=== PATIENT | female | born 1990 | race Hispanic/Latino ===

== ENCOUNTER 2019-10-24 09:30 | Emergency (ER) | payer OTHER ==
[2019-10-24] MEDS ORDERED: ACETAMINOPHEN 500 MG TAB ONE (10:17)
[2019-10-24] MEDS ORDERED: NA CHLORIDE 0.9% 1,000 ML ONE (10:18)
[2019-10-24] MEDS ORDERED: ENALAPRILAT 1.25 MG/ML VIAL IV ONE (10:18)
--- NOTE | 2019-10-24 10:45 | RAD REPORT ---
EXAM DESCRIPTION: RAD - Chest Single View - 10/24/2019 10:38 am CLINICAL HISTORY: Cough;Fever Chest pain. COMPARISON: CHEST SINGLE VIEW dated 12/08/2008 FINDINGS: Portable technique limits examination quality. The lungs are grossly clear. The heart is normal in size. No displaced fractures. IMPRESSION: No acute intrathoracic process suspected.
[2019-10-24 10:55] LABS: BUN Blood Urea Nitrogen 12 mg/dL (7-18); Bicarbonate 26 mmol/L (21-32); Glucose Level 102 mg/dL (74-106); Potassium 3.3 mmol/L (3.5-5.1); Sodium Level 136 mmol/L (136-145)
[2019-10-24 11:01] LABS: Hematocrit 42.2 % (36.0-45.0); RBC Red Blood Cell Count 4.95 M/uL (3.86-4.86)
[2019-10-24 11:02] LABS: Absolute Lymphocytes (CBC) 1.1 K/uL (0.7-4.9); Basophils % 0.2 % (0-1.3); MPV 8.2 fL (7.6-11.3)
[2019-10-24 11:36] LABS: Urine Blood 1+ (NEG); Urine Glucose NEGATIVE (NEG); Urine Protein 2+ (NEG); Urine pH 5.5 (5.0-7.0)
--- NOTE | 2019-10-24 11:54 | ER ---
Nurse's Notes [facility] Name: Julisa Camp Age: 28 yrs Sex: Female : 1990 Arrival Date: 10/24/2019 Time: 09:31 Bed 15 Private MD: Diagnosis: Acute upper respiratory infection, unspecified;Acute bronchitis Presentation: 10/23 09:45 Chief complaint: Patient states: cough and general body aches that began yesterday. ss Fever since last night, but now this morning patient is having chest pain that radiates towards her back. Coronavirus screen: The patient has NOT traveled to a country currently being monitored by the [facility] within the last 14 days. Proceed with normal triage procedures. Ebola Screen: Patient denies exposure to infectious person. Patient denies travel to an Ebola-affected area in the 21 days before illness onset. Initial Sepsis Screen: Does the patient meet any 2 criteria? HR > 90 bpm. Does the patient have a suspected source of infection? No. Patient's initial sepsis screen is negative. Risk Assessment: Do you want to hurt yourself or someone else? Patient reports no desire to harm self or others. 09:45 Method Of Arrival: Ambulatory ss 09:45 Acuity: GEN 3 ss 11:05 Onset of symptoms is unknown. Triage Assessment: 11:05 General: Appears in no apparent distress. Behavior is calm, cooperative, appropriate wh for age. Respiratory: Reports cough that is Onset: The symptoms/episode began/occurred gradually, the patient reports symptoms have resolved. 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 tw2 Historical: - Allergies: 09:47 No Known Allergies; ss - Home Meds: 09:47 None [Active]; ss - PMHx: 09:47 polycystic kidney disease; Hypertension; ss - PSHx: 09:47 ; Cholecystectomy; ss - Immunization history:: Adult Immunizations up to date. - Social history:: Smoking status: Patient denies any tobacco usage or history of. Screenin:18 Abuse screen: Denies threats or abuse. Nutritional screening: No deficits noted. tw2 Tuberculosis screening: No symptoms or risk factors identified. Fall Risk None identified. Assessment: 10:18 Cardiovascular: Rhythm is sinus tachycardia. tw2 10:18 General: Appears in no apparent distress. Behavior is calm, cooperative, appropriate tw2 for age. Neuro: Level of Consciousness is awake, alert, obeys commands, Oriented to person, place, time, situation. Cardiovascular: Heart tones S1 S2 Patient's skin is warm and dry. Respiratory: Airway is patent Respiratory effort is even, unlabored, Respiratory pattern is regular, symmetrical, Breath sounds are clear bilaterally. Respiratory: Reports cough that is. GI: No signs and/or symptoms were reported involving the gastrointestinal system. : No signs and/or symptoms were reported regarding the genitourinary system. EENT: Reports nasal congestion nasal discharge. Derm: No signs and/or symptoms reported regarding the dermatologic system. Musculoskeletal: Range of motion: intact in all extremities. 11:05 Reassessment: Patient appears in no apparent distress at this time. Patient and/or family updated on plan of care and expected duration. Pain level reassessed. Patient is alert, oriented x 3, equal unlabored respirations, skin warm/dry/pink. Pain: Denies pain. Respiratory: Airway is patent Respiratory effort is even, unlabored, Respiratory pattern is regular, symmetrical, Breath sounds are clear bilaterally. 12:15 Reassessment: Patient appears in no apparent distress at this time. No changes from previously documented assessment. Patient and/or family updated on plan of care and expected duration. Pain level reassessed. Patient is alert, oriented x 3, equal unlabored respirations, skin warm/dry/pink. Patient states feeling better. Vital Signs: 09:45 BP 183 / 115; Pulse 127; Resp 18; Temp 99.9(TE); Pulse Ox 98% on R/A; Weight 72.57 kg; ss Height 5 ft. 1 in. (154.94 cm); Pain 10/10; 10:06 BP 172 / 122 LA (auto/reg); Pulse 121; Resp 17; Pulse Ox 100% on R/A; jp3 10:17 BP 166 / 104; Pulse 122; Resp 17; Pulse Ox 100% on R/A; tw2 11:10 BP 141 / 92; Pulse 106; Resp 17; Pulse Ox 100% on R/A; tw2 11:23 BP 126 / 90; Pulse 105; Resp 20; Pulse Ox 99% on R/A; tw2 12:18 BP 128 / 92; Pulse 98; Resp 18; Pulse Ox 100% on R/A; wh 09:45 Body Mass Index 30.23 (72.57 kg, 154.94 cm) ED Course: 09:31 Patient arrived in ED. rg4 09:47 Triage completed. ss 09:47 Arm band placed on right wrist. ss 09:48 Neil Valerio PA is PHCP. jr8 09:48 Umair Josue MD is Attending Physician. jr8 09:49 Michelle Garcia RN is Primary Nurse. tw2 10:04 Bed in low position. Call light in reach. Side rails up X 1. Verbal reassurance given. jp3 court recording monitor on. Pulse ox on. NIBP on. 10:04 Patient maintains SpO2 saturation greater than 95% on room air. jp3 10:20 Initial lab(s) drawn, by me, sent to lab. Flu and/or RSV swab sent to lab. Strep swab jp3 sent to lab. Inserted saline lock: 20 gauge in right antecubital area, using aseptic technique. Blood collected. 10:32 X-ray(s) taken. tw2 10:52 XRAY Chest (1 view) In Process Unspecified. EDMS 11:20 Urine collected: clean catch specimen, clear, carmelina colored. jp3 11:47 Throat Culture Sent. jp3 12:11 Removal of peripheral IV. Catheter intact, dressing applied. jp3 12:16 No provider procedures requiring assistance completed. IV discontinued, intact, wh bleeding controlled, No redness/swelling at site. Administered Medications: 10:17 Drug: Tylenol 1000 mg Route: PO; 11:29 Follow up: Response: No adverse reaction; Pain is decreased tw2 12:18 Follow up: Response: No adverse reaction; Temperature is decreased 10:17 Drug: Enalaprilat 1.25 mg Route: IV; Rate: calculated rate; Site: right antecubital; 11:28 Follow up: Response: No adverse reaction; Blood pressure is lowered tw2 12:18 Follow up: Response: No adverse reaction; Blood pressure is lowered; IV Status: Completed infusion 10:19 Drug: NS 0.9% 1000 ml Route: IV; Rate: 1000 ml; Site: right antecubital; 12:18 Follow up: Response: No adverse reaction; IV Status: Completed infusion Point of Care Testing: Urine : 11:20 hCG Reading: Negative; Control Reading: Positive; jp3 Outcome: 11:53 Discharge ordered by MD. mera 12:17 Discharged to home ambulatory. 12:17 Condition: stable 12:17 Discharge instructions given to patient, Instructed on discharge instructions, follow up and referral plans. medication usage, POC Demonstrated understanding of instructions, follow-up care, medications, POC Prescriptions given X 2. 12:19 Patient left the ED. Signatures: Dispatcher [employer] EDPR Sarah Veloz RN RN Neil Valerio PA PA jr8 Michelle Garcia RN RN tw2 Mary Lou Scott4 Conchita Blair Viktor Howe jp3 Corrections: (The following items were deleted from the chart) 10:32 08:00 NS 0.9% 1000 ml IV at 1000 ml in right antecubital [facility] 10:33 10:10 Enalaprilat 1.25 mg IV at calculated rate in right antecubital [facility] 10:33 10:08 NS 0.9% 1000 ml IV at 1000 ml in right antecubital [facility]
--- NOTE | 2019-10-24 11:54 | EDPHYS ---
Physician Documentation [facility] Name: Julisa Camp Age: 28 yrs Sex: Female : 1990 Arrival Date: 10/24/2019 Time: 09:31 Bed 15 Private MD: ED Physician Umair Josue HPI: 10/23 11:44 This 28 yrs old Female presents to ER via Ambulatory with complaints of jr8 Breathing Difficulty, Cough. 11:44 The patient has shortness of breath at rest. Onset: The symptoms/episode began/occurred jr8 gradually, 2 day(s) ago. Duration: The symptoms are continuous. The patient's shortness of breath has no apparent modifying factors. Associated signs and symptoms: Pertinent positives: chest pain, non-productive cough, fever. Severity of symptoms: At their worst the symptoms were mild in the emergency department the symptoms are unchanged. The patient has not experienced similar symptoms in the past. The patient has not recently seen a physician. 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 tw2 Historical: - Allergies: 09:47 No Known Allergies; ss - Home Meds: 09:47 None [Active]; ss - PMHx: 09:47 polycystic kidney disease; Hypertension; ss - PSHx: 09:47 ; Cholecystectomy; ss - Immunization history:: Adult Immunizations up to date. - Social history:: Smoking status: Patient denies any tobacco usage or history of. ROS: 11:44 Eyes: Negative for injury, pain, redness, and discharge, Neck: Negative for injury, jr8 pain, and swelling, Abdomen/GI: Negative for abdominal pain, nausea, vomiting, diarrhea, and constipation, Back: Negative for injury and pain, MS/Extremity: Negative for injury and deformity, Skin: Negative for injury, rash, and discoloration. 11:44 Constitutional: Positive for body aches, chills, fever. 11:44 ENT: Positive for rhinorrhea. 11:44 Cardiovascular: Positive for chest pain. 11:44 Respiratory: Positive for cough, Negative for dyspnea on exertion, shortness of breath, sputum production, wheezing. 11:44 Neuro: Positive for headache. Exam: 11:44 Eyes: Pupils equal round and reactive to light, extra-ocular motions intact. Lids and jr8 lashes normal. Conjunctiva and sclera are non-icteric and not injected. Cornea within normal limits. Periorbital areas with no swelling, redness, or edema. ENT: Nares patent. No nasal discharge, no septal abnormalities noted. Tympanic membranes are normal and external auditory canals are clear. Oropharynx with no redness, swelling, or masses, exudates, or evidence of obstruction, uvula midline. Mucous membranes moist. Neck: Trachea midline, no thyromegaly or masses palpated, and no cervical lymphadenopathy. Supple, full range of motion without nuchal rigidity, or vertebral point tenderness. No Meningismus. Cardiovascular: Regular rate and rhythm with a normal S1 and S2. No gallops, murmurs, or rubs. Normal PMI, no JVD. No pulse deficits. Respiratory: Lungs have equal breath sounds bilaterally, clear to auscultation and percussion. No rales, rhonchi or wheezes noted. No increased work of breathing, no retractions or nasal flaring. Abdomen/GI: Soft, non-tender, with normal bowel sounds. No distension or tympany. No guarding or rebound. No evidence of tenderness throughout. Back: No spinal tenderness. No costovertebral tenderness. Full range of motion. Skin: Warm, dry with normal turgor. Normal color with no rashes, no lesions, and no evidence of cellulitis. MS/ Extremity: Pulses equal, no cyanosis. Neurovascular intact. Full, normal range of motion. Neuro: Awake and alert, GCS 15, oriented to person, place, time, and situation. Cranial nerves II-XII grossly intact. Motor strength 5/5 in all extremities. Sensory grossly intact. Cerebellar exam normal. Normal gait. Vital Signs: 09:45 BP 183 / 115; Pulse 127; Resp 18; Temp 99.9(TE); Pulse Ox 98% on R/A; Weight 72.57 kg; ss Height 5 ft. 1 in. (154.94 cm); Pain 10/10; 10:06 BP 172 / 122 LA (auto/reg); Pulse 121; Resp 17; Pulse Ox 100% on R/A; jp3 10:17 BP 166 / 104; Pulse 122; Resp 17; Pulse Ox 100% on R/A; tw2 11:10 BP 141 / 92; Pulse 106; Resp 17; Pulse Ox 100% on R/A; tw2 11:23 BP 126 / 90; Pulse 105; Resp 20; Pulse Ox 99% on R/A; tw2 12:18 BP 128 / 92; Pulse 98; Resp 18; Pulse Ox 100% on R/A; wh 09:45 Body Mass Index 30.23 (72.57 kg, 154.94 cm) ss MDM: 09:50 Patient medically screened. jr8 11:46 Differential diagnosis: Bronchitis pneumonia, Sepsis URI. Data reviewed: vital signs, [facility] nurses notes, lab test result(s), radiologic studies, plain films. Data interpreted: Pulse oximetry: on room air is 99 %. Interpretation: normal. Counseling: I had a detailed discussion with the patient and/or guardian regarding: the historical points, exam findings, and any diagnostic results supporting the discharge/admit diagnosis, lab results, radiology results, the need for outpatient follow up, a family practitioner, to return to the emergency department if symptoms worsen or persist or if there are any questions or concerns that arise at home. Response to treatment: the patient's symptoms have markedly improved after treatment, patient is well hydrated. 10/23 10:07 Order name: CBC with Diff; Complete Time: 11:17 10/23 10:07 Order name: Basic Metabolic Panel; Complete Time: 11:06 8 10/23 10:07 Order name: Influenza Screen (a \T\ B); Complete Time: 11:06 8 10/23 10:07 Order name: Strep [facility] 10/23 11:01 Order name: Throat Culture [facility] 10/23 11:27 Order name: Urine Dipstick--Ancillary (enter results); Complete Time: 11:43 bd 10/23 10:07 Order name: Urine Test (obtain specimen); Complete Time: 11:38 8 10/23 10:07 Order name: Urine Dipstick-Ancillary (obtain specimen); Complete Time: 11:38 [facility] 10/23 10:07 Order name: XRAY Chest (1 view); Complete Time: 11:17 8 10/23 10:16 Order name: IV Start; Complete Time: 10:21 tw2 10/23 11:27 Order name: Urine --Ancillary (enter results); Complete Time: 11:43 bd Administered Medications: 10:17 Drug: Tylenol 1000 mg Route: PO; 11:29 Follow up: Response: No adverse reaction; Pain is decreased tw2 12:18 Follow up: Response: No adverse reaction; Temperature is decreased 10:17 Drug: Enalaprilat 1.25 mg Route: IV; Rate: calculated rate; Site: right antecubital; 11:28 Follow up: Response: No adverse reaction; Blood pressure is lowered tw2 12:18 Follow up: Response: No adverse reaction; Blood pressure is lowered; IV Status: Completed infusion 10:19 Drug: NS 0.9% 1000 ml Route: IV; Rate: 1000 ml; Site: right antecubital; 12:18 Follow up: Response: No adverse reaction; IV Status: Completed infusion Point of Care Testing: Urine : 11:20 hCG Reading: Negative; Control Reading: Positive; jp3 Disposition: 13:02 Co-signature as Attending Physician, Umair Josue MD. Chart complete. rn Disposition: 10/24/19 11:53 Discharged to Home. Impression: Acute upper respiratory infection, unspecified, Acute bronchitis. - Condition is Stable. - Discharge Instructions: Acute Bronchitis, Adult, Upper Respiratory Infection, Adult. - Prescriptions for Prednisone 20 mg Oral Tablet - take 1 tablet by ORAL route once daily for 5 days; 5 tablet. - Work release form, Medication Reconciliation Form, Thank You Letter, Antibiotic Education, Prescription Opioid Use form. - Follow up: Private Physician; When: 2 - 3 days; Reason: Recheck today's complaints, Continuance of care, Re-evaluation by your physician. - Problem is new. - Symptoms have improved. Signatures: Dispatcher [employer] EDMS Umair Josue MD MD rn Smirch, Shelby, RN RN ss Roszak, Josh, PA PA jr8 Michelle Garcia RN RN 2 Conchita Blair Corrections: (The following items were deleted from the chart) 12:19 11:53 10/24/2019 11:53 Discharged to Home. Impression: Acute upper respiratory wh infection, unspecified; Acute bronchitis. Condition is Stable. Forms are Medication Reconciliation Form, Thank You Letter, Antibiotic Education, Prescription Opioid Use. Follow up: Private Physician; When: 2 - 3 days; Reason: Recheck today's complaints, Continuance of care, Re-evaluation by your physician. Problem is new. Symptoms have improved. samaria
[2019-10-24 12:25] VITALS: TEMP 99.9
[2019-10-24 12:31] VITALS: BP 128/92; O2SAT 100
== END 2019-10-24 12:19 | disposition home or self-care (01) ==
LOC: ER 09:30
DX: J06.9 Acute upper respiratory infection, unspecified (principal); J20.9 Acute bronchitis, unspecified
CPT/HCPCS: 96365; 87070; 85025; 80048; 36415; 81025; 87081; 81003; 87804 ×2; 71045; 99285; 96366; J7030

== ENCOUNTER 2020-11-11 21:25 | Emergency (ER) | payer OTHER ==
[2020-11-11] MEDS ORDERED: NA CHLORIDE 0.9% 1,000 ML ONE (23:05)
[2020-11-11 23:17] LABS: Absolute Lymphocytes (CBC) 0.8 K/uL (0.7-4.9); Basophils % 0.1 % (0-1.3); Lymphocytes % 11.1 % (15.3-44.8); MPV 7.7 fL (7.6-11.3); RBC Red Blood Cell Count 4.81 M/uL (3.86-4.86)
[2020-11-11 23:21] LABS: Protime INR 1.12
[2020-11-11 23:33] LABS: ALT/SGPT 63 U/L (12-78); AST/SGOT 29 U/L (15-37); Albumin 3.5 g/dL (3.4-5.0); Alkaline Phosphatase 61 U/L (45-117); BUN Blood Urea Nitrogen 13 mg/dL (7-18); Bicarbonate 24 mmol/L (21-32); Bilirubin Direct 0.2 mg/dL (0-0.2); Bilirubin Total 0.7 mg/dL (0.2-1.0); Ferritin 217.9 ng/mL (8-388); Glucose Level 136 mg/dL (74-106); Lipase 241 U/L (73-393); Potassium 3.1 mmol/L (3.5-5.1); Protein, Total 8.4 g/dL (6.4-8.2); Sodium Level 135 mmol/L (136-145); Troponin (Emerg Dept Use Only) < 0.02 ng/mL (0.0-0.045)
--- NOTE | 2020-11-12 00:16 | EDPHYS ---
Physician Documentation [facility] Name: Julisa Camp Age: 29 yrs Sex: Female : 1990 Arrival Date: 11/11/2020 Time: 22:00 Bed 24 Private MD: ED Physician Philippe Thomas HPI: 11/11 22:57 This 29 yrs old Female presents to ER via Ambulatory with complaints of kb Breathing Difficulty. 22:57 The patient has shortness of breath at rest. Onset: The symptoms/episode began/occurred kb 1 week(s) ago. Duration: The symptoms are continuous. The patient's shortness of breath is aggravated by exertion. Associated signs and symptoms: Pertinent positives: non-productive cough, fever. Severity of symptoms: At their worst the symptoms were moderate in the emergency department the symptoms are unchanged. The patient has not experienced similar symptoms in the past. The patient has been recently seen by a physician:. Pt reports she tested positive for COVID on 11/04/20 at a clinic. States she was given zithromax, decadron, symbicort and albuterol, but she is still having shortness of breath, MEDRANO, cough, fever. . Historical: - Allergies: 22:15 No Known Allergies; sg - PMHx: 22:15 Hypertension; POLYCYSTIC KIDNEY DISEASE; sg - PSHx: 22:15 ; Cholecystectomy; sg - Immunization history:: Adult Immunizations not up to date. - Social history:: Smoking status: Patient denies any tobacco usage or history of. ROS: 22:56 MS/Extremity: Negative for injury and deformity, Skin: Negative for injury, rash, and kb discoloration, Neuro: Negative for headache, weakness, numbness, tingling, and seizure. 22:56 Constitutional: Positive for chills, fever, malaise. 22:56 Cardiovascular: Positive for palpitations. 22:56 Respiratory: Positive for cough, dyspnea on exertion, shortness of breath. 22:56 Abdomen/GI: Positive for diarrhea. Exam: 22:56 Constitutional: This is a well developed, well nourished patient who is awake, alert, kb and in no acute distress. Cardiovascular: Regular rate and rhythm with a normal S1 and S2. No gallops, murmurs, or rubs. No pulse deficits. Skin: Warm, dry with normal turgor. Normal color. MS/ Extremity: Pulses equal, no cyanosis. Neurovascular intact. Full, normal range of motion. Neuro: Awake and alert, GCS 15, oriented to person, place, time, and situation. Moves all extremities. Normal gait. 22:56 Respiratory: the patient does not display signs of respiratory distress, Respirations: normal, Breath sounds: are clear throughout. 11/12 00:13 ECG was reviewed by the Attending Physician. Vital Signs: 11/11 22:13 BP 130 / 88; Pulse 120; Resp 18; Temp 99.3(O); Pulse Ox 99% on R/A; sg 23:00 BP 102 / 80; Pulse 109; Resp 19; Pulse Ox 94% on R/A; jb4 MDM: 22:14 Patient medically screened. 22:56 Data reviewed: vital signs, nurses notes. Data interpreted: Pulse oximetry: on room air kb is 99 %. Interpretation: normal. 11/12 00:15 Counseling: I had a detailed discussion with the patient and/or guardian regarding: the kb historical points, exam findings, and any diagnostic results supporting the discharge/admit diagnosis, lab results, radiology results, the need for outpatient follow up, a family practitioner, to return to the emergency department if symptoms worsen or persist or if there are any questions or concerns that arise at home. 11/11 22:36 Order name: BMP 11/11 22:36 Order name: C-Reactive Protein 11/11 22:36 Order name: CBC with Diff 11/11 22:36 Order name: D-Dimer 11/11 22:36 Order name: Ferritin 11/11 22:36 Order name: Lactate 11/11 22:36 Order name: LFT's 11/11 22:36 Order name: Lipase; Complete Time: 23:35 kb 11/11 22:36 Order name: Procalcitonin; Complete Time: 00:13 kb 11/11 22:36 Order name: PT-INR; Complete Time: 23:29 kb 11/11 22:36 Order name: Ptt, Activated; Complete Time: 23:29 kb 11/11 22:36 Order name: Troponin (emerg Dept Use Only); Complete Time: 23:35 kb 11/11 22:36 Order name: Basic Metabolic Panel; Complete Time: 23:35 EDMS 11/11 22:36 Order name: C-Reactive Protein; Complete Time: 23:35 EDMS 11/11 22:36 Order name: EKG; Complete Time: 22:36 kb 11/11 22:36 Order name: Cardiac monitoring; Complete Time: 22:41 kb 11/11 22:36 Order name: Droplet/Contact Precautions; Complete Time: 22:41 kb 11/11 22:36 Order name: EKG - Nurse/Tech; Complete Time: 23:07 kb 11/11 22:36 Order name: IV Start; Complete Time: 22:52 kb 11/11 22:36 Order name: Labs collected and sent; Complete Time: 22:52 kb 11/11 22:36 Order name: O2 Per Protocol; Complete Time: 22:41 kb 11/11 22:36 Order name: O2 Sat Monitoring; Complete Time: 22:41 kb 11/11 22:36 Order name: CT Chest For PE Angio kb 11/11 22:36 Order name: CBC with Automated Diff; Complete Time: 23:18 EDMS 11/11 22:36 Order name: D-Dimer; Complete Time: 23:29 EDMS 11/11 22:36 Order name: Ferritin; Complete Time: 23:35 EDMS 11/11 22:36 Order name: Lactate; Complete Time: 00:13 EDMS 11/11 22:36 Order name: Liver (Hepatic) Function; Complete Time: 23:35 EDMS EC:13 Rate is 110 beats/min. Rhythm is regular. QRS Felt is Normal. CA interval is normal at kb 126 msec. QRS interval is normal at 78 msec. QT interval is normal at 328 msec. Administered Medications: 11/11 22:58 Drug: NS 0.9% 1000 ml Route: IV; Rate: 1000 ml; Site: right antecubital; jb4 Disposition: 11/12 08:13 Co-signature as Attending Physician, Philippe Thomas MD I agree with the assessment and tw4 plan of care. Disposition: 11/12/20 00:16 Discharged to Home. Impression: Coronavirus infection, unspecified. - Condition is Stable. - Discharge Instructions: Viral Respiratory Infection, Vivo-Xk-Riod, COVID-19. - Medication Reconciliation Form, Thank You Letter, Antibiotic Education, Prescription Opioid Use, Work release form form. - Follow up: Emergency Department; When: As needed; Reason: Worsening of condition. Follow up: Private Physician; When: 2 - 3 days; Reason: Recheck today's complaints, Continuance of care, Re-evaluation by your physician. Signatures: Dispatcher [employer] [facility] Beatriz Mcguire, AUDIO VISUAL EQUIPMENT RENTAL CLERK-C AUDIO VISUAL EQUIPMENT RENTAL CLERK-John Melendrez, RN RN sg Siddhartha Hernandez RN RN jb4 Philippe Thomas MD MD tw4 Corrections: (The following items were deleted from the chart) 11/11 23:01 22:23 Chest Single View+RAD.[email or web address].BRZ ordered. [facility] 11/12 00:27 00:16 11/12/2020 00:16 Discharged to Home. Impression: Coronavirus infection, sg unspecified. Condition is Stable. Forms are Medication Reconciliation Form, Thank You Letter, Antibiotic Education, Prescription Opioid Use. Follow up: Emergency Department; When: As needed; Reason: Worsening of condition. Follow up: Private Physician; When: 2 - 3 days; Reason: Recheck today's complaints, Continuance of care, Re-evaluation by your physician. kb
--- NOTE | 2020-11-12 00:16 | ER ---
Nurse's Notes [facility] Name: Julisa Camp Age: 29 yrs Sex: Female : 1990 Arrival Date: 11/11/2020 Time: 22:00 Bed 24 Private MD: Diagnosis: Coronavirus infection, unspecified Presentation: 11/11 22:13 Chief complaint: Seen on 10/23/2020 and dx with URI , reports not feeling any better at this time, reports having shortness of breath as well as feeling feverish at home, states just not feeling well. Coronavirus screen: Client denies travel out of the [place] in the last 14 days. cough unrelated to allergies, fever, Client presents with at least one sign or symptom that may indicate coronavirus-19. Standard/surgical mask placed on the client. Provider contacted for isolation considerations. Ebola Screen: Patient negative for fever greater than or equal to 101.5 degrees Fahrenheit, and additional compatible Ebola Virus Disease symptoms Patient denies exposure to infectious person. Patient denies travel to an Ebola-affected area in the 21 days before illness onset. No symptoms or risks identified at this time. Initial Sepsis Screen: Does the patient meet any 2 criteria? HR > 90 bpm. No. Patient's initial sepsis screen is negative. Does the patient have a suspected source of infection? Yes: Productive cough/pneumonia. Risk Assessment: Do you want to hurt yourself or someone else? Patient reports no desire to harm self or others. Onset of symptoms was October 22, 2020. Care prior to arrival: None. Transition of care: patient was not received from another setting of care. 22:13 Acuity: GEN 3 sg 22:13 Method Of Arrival: Ambulatory sg Historical: - Allergies: 22:15 No Known Allergies; sg - PMHx: 22:15 Hypertension; POLYCYSTIC KIDNEY DISEASE; sg - PSHx: 22:15 ; Cholecystectomy; sg - Immunization history:: Adult Immunizations not up to date. - Social history:: Smoking status: Patient denies any tobacco usage or history of. Assessment: 22:15 General: Appears in no apparent distress. uncomfortable, Behavior is calm, cooperative, jb4 appropriate for age. Pain: Complains of pain in chest Pain does not radiate. Pain currently is 5 out of 10 on a pain scale. Neuro: Level of Consciousness is awake, alert, obeys commands. Cardiovascular: Patient's skin is warm and dry. Respiratory: Airway is patent Respiratory effort is even, unlabored, Respiratory pattern is regular, symmetrical. GI: No signs and/or symptoms were reported involving the gastrointestinal system. : No signs and/or symptoms were reported regarding the genitourinary system. EENT: No signs and/or symptoms were reported regarding the EENT system. Derm: Skin is intact, Skin is pink, warm \T\ dry. Musculoskeletal: Circulation, motion, and sensation intact. Range of motion: intact in all extremities. 23:00 Reassessment: Patient appears in no apparent distress at this time. Patient and/or jb4 family updated on plan of care and expected duration. Pain level reassessed. Patient is alert, oriented x 3, equal unlabored respirations, skin warm/dry/pink. Vital Signs: 22:13 BP 130 / 88; Pulse 120; Resp 18; Temp 99.3(O); Pulse Ox 99% on R/A; sg 23:00 BP 102 / 80; Pulse 109; Resp 19; Pulse Ox 94% on R/A; jb4 ED Course: 22:00 Patient arrived in ED. am4 22:13 Arm band placed on. sg 22:14 Beatriz Mcguire FNP-C is [facility]. kb 22:14 Philippe Thomas MD is Attending Physician. kb 22:15 Triage completed. sg 22:15 Patient has correct armband on for positive identification. athletic monitor on. Pulse sg ox on. NIBP on. Warm blanket given. Head of bed elevated. 22:32 Siddhartha Hernandez RN is Primary Nurse. jb4 22:49 Inserted saline lock: 20 gauge in right antecubital area, using aseptic technique. ds4 Blood collected. 23:44 Primary Nurse role handed off by Siddhartha Hernandez RN sg 23:44 John Menard, EVELINA is Primary Nurse. sg 23:44 CT Chest For PE Angio In Process Unspecified. EDMS 11/12 00:25 No provider procedures requiring assistance completed. IV discontinued, intact, sg bleeding controlled, No redness/swelling at site. Pressure dressing applied. Administered Medications: 11/11 22:58 Drug: NS 0.9% 1000 ml Route: IV; Rate: 1000 ml; Site: right antecubital; jb4 Outcome: 11/12 00:16 Discharge ordered by . silvia 00:25 Discharged to home ambulatory, with family. sg 00:25 Condition: good 00:25 Discharge instructions given to patient, Instructed on discharge instructions, follow up and referral plans. safety practices, Demonstrated understanding of instructions, follow-up care. 00:27 Patient left the ED. sg Signatures: Dispatcher [employer] EDMS Beatriz Mcguire, PENSION EXAMINER-C PENSION EXAMINER-John Melendrez RN RN sg Mario Apple ds4 Siddhartha Hernandez RN RN jb4 Patti Dennis am4 Corrections: (The following items were deleted from the chart) 11/11 22:20 22:13 Chief complaint: Seen on 10/23/2020 and dx with URI and COVID 19, reports not sg feeling any better at this time, reports having shortness of breath as well as feeling feverish at home, states just not feeling well sg 22:20 22:13 Coronavirus screen: Client denies travel out of the [place] in the last 14 days. sg Client reports previous positive COVID test result. Date of collection: October 23, 2020 22:21 22:13 Onset of symptoms was October 19, 2020 [facility] 22:21 22:13 Coronavirus screen: Client denies travel out of the [place] in the last 14 days. sg cough unrelated to allergies, fever, Client presents with at least one sign or symptom that may indicate coronavirus-19. Standard/surgical mask placed on the client. Provider contacted for isolation considerations. Client reports previous positive COVID test result. Date of collection: October 23, 2020
[2020-11-12 00:51] VITALS: BP 102/80; O2SAT 94
[2020-11-12 00:53] VITALS: TEMP 99.3
--- NOTE | 2020-11-12 12:14 | RAD REPORT ---
EXAM DESCRIPTION: CTA Chest, Pulmonary Embolus Protocol COMPARISON: None. CLINICAL HISTORY: [facility] MAIN DYSPNEA TECHNIQUE: CT images through the chest with IV contrast using the pulmonary embolus protocol. Multip lanar reformats. Automated exposure control was utilized on this examination as a dose lowering geoff hnique. FINDINGS: Pulmonary arteries and vascular: Diagnostic quality bolus. No filling defects. Heart and mediastinum: Heart size is normal. No lymphadenopathy. Thyroid gland: Visualized portions are normal. Lungs: Multifocal bilateral consolidations are present with subpleural predominance. Airways: No filling defects. No bronchiectasis. Pleura: No pneumothorax. No significant pleural effusion. Subphrenic structures: Partially visualized right renal cyst. Multiple hepatic hypodensities are favo red to represent benign cysts or hemangiomas. Musculoskeletal and soft tissues: Within normal limits for age. IMPRESSION: 1. No evidence of pulmonary embolus. 2. Commonly reported imaging features of COVID-19 pneumonia are present. Other processes such as infl uenza pneumonia and organizing pneumonia, as can be seen with drug toxicity and connective tissue dis ease, can cause similar imaging pattern. Electronically signed by: Jian Coy MD 11/11/2020 11:54 PM CDT Due to temporary technical issues with the PACS/Fluency reporting system, reports are being signed by the in house radiologists without review as a courtesy to insure prompt reporting. The interpreting radiologist is fully responsible for the content of the report.
--- NOTE | 2020-11-12 12:53 | EKG ---
Test Date: 2020-11-11 Test Time: 23:06:14 Press Operator Automatic: THOMAS MEASUREMENT RESULTS: Intervals: Rate: 110 PA: 126 QRSD: 78 QT: 328 QTc: 443 Clarence: P: 56 PA: 126 QRS: 85 T: 44 INTERPRETIVE STATEMENTS: Sinus tachycardia Otherwise normal ECG No previous ECG available for comparison Electronically Signed On 11-12-20 12:52:32 CDT by Doni Coates
== END 2020-11-12 00:27 | disposition home or self-care (01) ==
LOC: ER 21:25
DX: U07.1 COVID-19 (principal); I10 Essential (primary) hypertension
CPT/HCPCS: 93005; 85025; 80048; 36415; 85610; 82565; 85379; 80076; 83605; 85730; 84484; 82728; 83690; 84145; 86140; 71275; Q9967; J7030; 99284

== ENCOUNTER 2023-03-28 19:58 | Emergency (ER) | payer OTHER ==
[2023-03-28 21:18] LABS: Specific Gravity 1.011 (1.005-1.030)
[2023-03-28 21:23] LABS: Specific Gravity 1.012 (1.005-1.030); Urine Bacteria <20 /HPF (<20); Urine Bilirubin NEGATIVE (Negative); Urine Blood 3+ (Negative); Urine Clarity Extremely Turbid (Clear); Urine Color Light-Yellow (Yellow); Urine Glucose NEGATIVE (Negative); Urine Protein 2+ (Negative); Urine RBC >50 /HPF (None Seen); Urine Urobilinogen Normal (Normal); Urine WBC Clump Occasional /HPF (None Seen)
[2023-03-28 21:47] LABS: Lymphocytes % 10.5 % (15.3-44.8); MCV 82.9 fL (80-100); MPV 7.7 fL (7.6-11.3); Platelets 350 thou/uL (152-406); RBC Red Blood Cell Count 4.82 M/uL (3.86-4.86)
[2023-03-28 21:54] LABS: Protime INR 0.96
[2023-03-28 22:00] LABS: Albumin 4.1 g/dL (3.4-5.0); Bilirubin Total 0.5 mg/dL (0.2-1.0); Potassium 3.2 mEq/L (3.5-5.1)
[2023-03-28] MEDS ORDERED: MORPHINE 4 MG/ML SYR ONE (22:22)
[2023-03-28] MEDS ORDERED: NA CHLORIDE 0.9% 1,000 ML ONE ×2 (22:23→23:06)
[2023-03-28] MEDS ORDERED: ONDANSETRON 4 MG/2 ML VIAL ONE (22:23)
--- NOTE | 2023-03-28 22:46 | RAD REPORT ---
EXAM DESCRIPTION: CT - Abdomen Pelvis W Contrast - 03/28/2023 10:29 pm CLINICAL HISTORY: Abdominal pain COMPARISON: 2020 ultrasound TECHNIQUE: Computed axial tomography of the abdomen pelvis was obtained. 100 cc Isovue-300 was admin istered intravenously. Oral contrast was not requested which limits evaluation of bowel and appendix All CT scans are performed using dose optimization technique as appropriate and may include automated exposure control or mA/KV adjustment according to patient size. FINDINGS: The kidneys are enlarged containing many cysts. No hemorrhage visualized within cyst. Smal l bilateral renal calculi. Renal cortical thinning bilaterally. No hydronephrosis. Multiple small hepatic cysts. Cholecystectomy The spleen, pancreas and adrenals are unremarkable. There is no evidence of diverticulitis. Normal appendix. No adnexal mass IMPRESSION: Polycystic kidney disease. No acute abnormality is displayed
[2023-03-28] MEDS ORDERED: CEFTRIAXONE 1000 MG/VIAL ONE (23:06)
[2023-03-29] MEDS ORDERED: MORPHINE 4 MG/ML SYR ONE (00:48)
--- NOTE | 2023-03-29 02:27 | ER ---
Nurse's Notes [facility] Name: Julisa Cintron Age: 32 yrs Sex: Female : 1990 Arrival Date: 03/28/2023 Time: 19:58 Bed 8 Private MD: Diagnosis: UTI/ Urinary tract infection, site not specified Presentation: 03/28 20:50 Chief complaint: Patient states: In the middle of the night I woke up with my left vc1 kidney was hurting now I have blood in my urine I'm going more often a little at a time. 20:50 Coronavirus screen: Vaccine status: Patient reports receiving the 2nd dose of the covid vc1 vaccine. [employer] Client denies travel out of the [place] in the last 14 days. At this time, the client does not indicate any symptoms associated with coronavirus-19. Ebola Screen: Patient negative for fever greater than or equal to 101.5 degrees Fahrenheit, and additional compatible Ebola Virus Disease symptoms Patient denies exposure to infectious person. Patient denies travel to an Ebola-affected area in the 21 days before illness onset. No symptoms or risks identified at this time. Initial Sepsis Screen: Does the patient meet any 2 criteria? No. Patient's initial sepsis screen is negative. Does the patient have a suspected source of infection? No. Patient's initial sepsis screen is negative. Risk Assessment: Do you want to hurt yourself or someone else? Patient reports no desire to harm self or others. Onset of symptoms was March 27, 2023. 20:50 Acuity: GEN 3 vc1 20:50 Method Of Arrival: Ambulatory vc1 Triage Assessment: 20:55 General: Appears in no apparent distress. Behavior is calm, cooperative, appropriate vc1 for age. Pain: Complains of pain in left low back and meatus Pain does not radiate. Pain currently is 10 out of 10 on a pain scale. Quality of pain is described as sharp, throbbing. EENT: No deficits noted. No signs and/or symptoms were reported regarding the EENT system. Neuro: Level of Consciousness is awake, alert, obeys commands, Oriented to person, place, time, situation, Appropriate for age. Cardiovascular: No deficits noted. Respiratory: Airway is patent Respiratory effort is even, unlabored, Respiratory pattern is regular, symmetrical. GI: No deficits noted. No signs and/or symptoms were reported involving the gastrointestinal system. : No deficits noted. No signs and/or symptoms were reported regarding the genitourinary system. Derm: No deficits noted. No signs and/or symptoms reported regarding the dermatologic system. Musculoskeletal: No deficits noted. No signs and/or symptoms reported regarding the musculoskeletal system. 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 - Social history:: Smoking status: Patient denies any tobacco usage or history of. Screenin:55 [facility] ED Fall Risk Assessment (Adult) History of falling in the last 3 months, vc1 including since admission No falls in past 3 months (0 pts) Confusion or Disorientation No (0 pts) Intoxicated or Sedated No (0 pts) Impaired Gait No (0 pts) Mobility Assist Device Used No (0 pt) Altered Elimination No (0 pt) Score/Fall Risk Level 0 - 2 = Low Risk Oriented to surroundings, Maintained a safe environment, Educated pt \T\ family on fall prevention, incl call for assistance when getting out of bed. Abuse screen: Denies threats or abuse. Nutritional screening: No deficits noted. Tuberculosis screening: No symptoms or risk factors identified. Assessment: 21:36 General: Appears uncomfortable, Behavior is calm, cooperative. : Reports burning with kd3 urination. 03/29 00:40 General: Appears in no apparent distress. Behavior is calm, cooperative. Pain: kd3 Complains of pain in pelvis and meatus and groin and left low back. Neuro: Level of Consciousness is awake, alert, obeys commands, Oriented to person, place, time, situation. Cardiovascular: Patient's skin is warm and dry. Respiratory: Airway is compromised Trachea midline Respiratory effort is even, unlabored. 02:52 Reassessment: Patient appears in no apparent distress at this time. Patient and/or jb4 family updated on plan of care and expected duration. Pain level reassessed. Patient is alert, oriented x 3, equal unlabored respirations, skin warm/dry/pink. Vital Signs: 03/28 20:50 BP 166 / 109; Pulse 134; Resp 24; Temp 99.3; Pulse Ox 100% ; Weight 70.31 kg; Height 5 vc1 ft. 1 in. ; Pain 10/10; 22:17 Pulse 126; Resp 18; Pulse Ox 100% on R/A; kd3 23:07 BP 157 / 103; Pulse 122; Resp 19; Pulse Ox 100% on R/A; kd3 03/29 00:36 BP 187 / 109; Pulse 114; Resp 16; Pulse Ox 100% on R/A; kd3 02:20 BP 154 / 99; Pulse 116; Resp 19; Pulse Ox 99% on R/A; kd3 02:52 Temp 99; jb4 03/28 20:50 Body Mass Index 29.29 (70.31 kg, 154.94 cm) vc1 03/28 20:50 Pain Scale: Adult vc1 ED Course: 03/28 20:00 Patient arrived in ED. ag3 20:34 Angela Cintron PA-C is PHCP. sb4 20:34 Cristhian Sy MD is Attending Physician. sb4 20:37 Leela Zepeda RN is Primary Nurse. kd3 20:55 Arm band placed on right wrist. vc1 21:31 Triage completed. vc1 21:36 Urine Culture Sent. kd3 21:36 Blood Culture Adult (2) Sent. kd3 21:36 Lactate w/ 2H reflex if indic. Sent. kd3 21:36 Protime (+inr) Sent. kd3 21:36 Ptt, Activated Sent. kd3 21:36 CBC with Diff Sent. kd3 21:36 CMP Sent. kd3 21:36 Inserted saline lock: 20 gauge in right antecubital area, using aseptic technique. kd3 Blood collected. 22:30 CT Abd/Pelvis - IV Contrast Only In Process Unspecified. EDMS 03/29 00:40 No provider procedures requiring assistance completed. kd3 00:41 Patient has correct armband on for positive identification. Provided Education on: . kd3 02:26 Jesus Agee MD is Referral Physician. sb4 02:52 IV discontinued, intact, bleeding controlled, No redness/swelling at site. Pressure jb4 dressing applied. Administered Medications: 03/28 22:16 Drug: NS 0.9% IV 1000 ml Route: IV; Rate: 1 bolus; Site: right antecubital; kd3 22:16 Drug: morphine IVP or IV 4 mg Route: IVP; Infused Over: 4 mins; Site: right antecubital;kd3 22:16 Drug: Ondansetron IVP 4 mg Route: IVP; Site: right antecubital; kd3 23:02 Drug: Rocephin IV 1 grams Route: IV; Rate: calculated rate; Site: left antecubital; kd3 23:02 Drug: NS 0.9% IV 1000 ml Route: IV; Rate: 1 bolus; Site: left antecubital; kd3 03/29 00:40 Drug: morphine IVP or IV 4 mg Route: IVP; Infused Over: 4 mins; Site: right antecubital;kd3 Outcome: 02:26 Discharge ordered by . sb4 02:52 Discharged to home ambulatory. jb4 02:52 Condition: stable 02:52 Discharge instructions given to patient, family, Instructed on discharge instructions, follow up and referral plans. medication usage, Demonstrated understanding of instructions, follow-up care, medications, Prescriptions given X 1. 02:55 Patient left the ED. jb4 Signatures: Dispatcher [employer] EDMS Siddhartha Hernandez RN RN jb4 Janie Pierce Kyli, RN RN kd3 Teresita Sims RN RN 1 Angela Cintron PA-C PA-C sb4
--- NOTE | 2023-03-29 02:27 | EDPHYS ---
Physician Documentation [facility] Name: Julisa Cintron Age: 32 yrs Sex: Female : 1990 Arrival Date: 03/28/2023 Time: 19:58 Bed 8 Private MD: ED Physician Cristhian Sy HPI: 03/28 20:56 This 32 yrs old Female presents to ER via Unassigned with complaints of Pain sb4 With Urination, Low Back Pain, Fever. 20:56 Onset: The symptoms/episode began/occurred last night. Associated signs and symptoms: sb4 Pertinent positives: abdominal pain, dysuria, fever, Pertinent negatives: congestion, constipation, diarrhea, headache. patient states abdominal pain/left flank pain woke her up last night and throughout the day today she has had worsening pain, dysuria, hematuria, nausea. 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 - Social history:: Smoking status: Patient denies any tobacco usage or history of. ROS: 20:56 Eyes: Negative for injury, pain, redness, and discharge, ENT: Negative for injury, sb4 pain, and discharge, Cardiovascular: Negative for chest pain, palpitations, and edema, Respiratory: Negative for shortness of breath, cough, wheezing, and pleuritic chest pain, Skin: Negative for injury, rash, and discoloration, Neuro: Negative for headache, weakness, numbness, tingling, and seizure. 20:56 Constitutional: Positive for fever. 20:56 Abdomen/GI: Positive for abdominal pain, nausea. 20:56 Back: Positive for flank pain, on the left. 20:56 : Positive for small amounts, hematuria, burning with urination. 20:56 All other systems are negative. Exam: 20:56 Constitutional: This is a well developed, well nourished patient who is awake, alert, sb4 and in no acute distress. Head/Face: Normocephalic, atraumatic. Eyes: Extra-ocular motions intact. Periorbital areas with no swelling, redness, or edema. Respiratory: Lungs have equal breath sounds bilaterally, clear to auscultation and percussion. No rales, rhonchi or wheezes noted. No increased work of breathing, no retractions or nasal flaring. Abdomen/GI: Soft, non-tender, no distension. Skin: Warm, dry with normal turgor. Normal color with no rashes, no lesions, and no evidence of cellulitis. MS/ Extremity: Pulses equal, no cyanosis. Neurovascular intact. Full, normal range of motion. 20:56 Cardiovascular: Exam negative for gallop, JVD, murmur, pulse deficit, Rate: tachycardic, Rhythm: regular. 20:56 Back: CVA tenderness, that is mild, is noted on the left. Vital Signs: 20:50 BP 166 / 109; Pulse 134; Resp 24; Temp 99.3; Pulse Ox 100% ; Weight 70.31 kg; Height 5 vc1 ft. 1 in. ; Pain 10/10; 22:17 Pulse 126; Resp 18; Pulse Ox 100% on R/A; kd3 23:07 BP 157 / 103; Pulse 122; Resp 19; Pulse Ox 100% on R/A; kd3 03/29 00:36 BP 187 / 109; Pulse 114; Resp 16; Pulse Ox 100% on R/A; kd3 02:20 BP 154 / 99; Pulse 116; Resp 19; Pulse Ox 99% on R/A; kd3 02:52 Temp 99; jb4 03/28 20:50 Body Mass Index 29.29 (70.31 kg, 154.94 cm) vc1 03/28 20:50 Pain Scale: Adult vc1 MDM: 03/28 20:34 Patient medically screened. sb4 20:56 Differential diagnosis: UTI, pyelonephritis, renal cyst, nephrolithiasis, sb4 ureterolithiasis. 03/29 02:24 Data reviewed: vital signs, nurses notes, lab test result(s), radiologic studies, I sb4 have discussed the patient's presentation/case with the attending Emergency Department Physician; and as a result, I will discharge patient. Consideration of Admission/Observation Escalation of care including admission/observation considered. Care significantly affected by the following chronic conditions: Hypertension, polycystic kidney disease. Counseling: I had a detailed discussion with the patient and/or guardian regarding: the historical points, exam findings, and any diagnostic results supporting the discharge/admit diagnosis, the presence of at least one elevated blood pressure reading (>120/80) during this emergency department visit, lab results, radiology results, the need for outpatient follow up. Refusal of service: The patient/guardian displays adequate decision making capability and despite a detailed discussion of alternatives, benefits, risks, and consequences refuses: Admission to the hospital for further work-up and treatment. ED course: tachycardia persisted despite IV hydration. given that and her leukocytosis with a source of infection, meeting sepsis criteria, i recommended and strongly urged admission but patient refused. 03/28 20:39 Order name: CBC with Diff; Complete Time: 21:52 [facility] 03/28 20:39 Order name: CMP; Complete Time: 22:01 [facility] 03/28 20:39 Order name: Lipase; Complete Time: 22:01 [facility] 03/28 20:39 Order name: Test, Urine; Complete Time: 21:27 [facility] 03/28 20:39 Order name: Urinalysis w/ reflexes; Complete Time: 21:27 [facility] 03/28 20:50 Order name: Blood Culture Adult (2) [facility] 03/28 20:50 Order name: Lactate w/ 2H reflex if indic.; Complete Time: 22:01 [facility] 03/28 20:50 Order name: Protime (+inr); Complete Time: 21:57 [facility] 03/28 20:50 Order name: Ptt, Activated; Complete Time: 21:57 [facility] 03/28 21:28 Order name: Urine Culture [facility] 03/28 20:39 Order name: CT Abd/Pelvis - IV Contrast Only; Complete Time: 22:49 [facility] 03/28 20:39 Order name: IV Saline Lock; Complete Time: 21:36 [facility] 03/28 20:39 Order name: Labs collected and sent; Complete Time: 21:36 sb4 Administered Medications: 03/28 22:16 Drug: NS 0.9% IV 1000 ml Route: IV; Rate: 1 bolus; Site: right antecubital; kd3 22:16 Drug: morphine IVP or IV 4 mg Route: IVP; Infused Over: 4 mins; Site: right antecubital;kd3 22:16 Drug: Ondansetron IVP 4 mg Route: IVP; Site: right antecubital; kd3 23:02 Drug: Rocephin IV 1 grams Route: IV; Rate: calculated rate; Site: left antecubital; kd3 23:02 Drug: NS 0.9% IV 1000 ml Route: IV; Rate: 1 bolus; Site: left antecubital; kd3 03/29 00:40 Drug: morphine IVP or IV 4 mg Route: IVP; Infused Over: 4 mins; Site: right antecubital;kd3 Disposition: 03:13 Co-signature as Attending Physician, Cristhian Sy MD I reviewed the patient's care rt provided by the Advanced Practice Provider and agree with the diagnosis and treatment plan. Disposition Summary: 03/29/23 02:26 Discharge Ordered Location: Home sb4 Problem: new sb4 Symptoms: have improved sb4 Condition: Stable sb4 Diagnosis - UTI/ Urinary tract infection, site not specified sb4 Followup: sb4 - With: Jesus Agee MD - When: 1 - 2 days - Reason: Recheck today's complaints, Re-evaluation by your physician Discharge Instructions: - Discharge Summary Sheet sb4 Forms: - Medication Reconciliation Form sb4 - Thank You Letter sb4 - Antibiotic Education sb4 - Prescription Opioid Use sb4 - Patient Portal Instructions sb4 - Leadership Thank You Letter sb4 Prescriptions: - Cipro 500 mg Oral Tablet - take 1 tablet by ORAL route every 12 hours for 7 days; 14 tablet; Refills: 0, sb4 Product Selection Permitted Signatures: Dispatcher [employer] Leela Chand, RN RN kd3 Teresita Sims RN RN vc1 Angela Cintron, PAFransisca PLEITEZ sb4 Cristhian Sy MD MD rt
[2023-03-29 03:44] VITALS: BP 154/99; O2SAT 99
[2023-03-29 03:45] VITALS: TEMP 99
== END 2023-03-29 02:55 | disposition home or self-care (01) ==
LOC: ER 19:58
DX: N39.0 Urinary tract infection, site not specified (principal); R31.9 Hematuria, unspecified; R35.0 Frequency of micturition; M54.50 Low back pain, unspecified; R30.9 Painful micturition, unspecified; R50.9 Fever, unspecified; I10 Essential (primary) hypertension; Q61.3 Polycystic kidney, unspecified
CPT/HCPCS: 87040 ×2; 87088; 85025; 81001; 87086; 36415; 81025; 85610; 83605; 85730; 83690; 80053; 74177; Q9967; J2405; J7030 ×2; J0696